=== PATIENT | male | born 1955 | race Caucasian/White ===

== ENCOUNTER → 2019-06-08 | Outpatient (CLI) | payer BC ==
[~2019-06-08] MED LIST: GABAPENTIN100 MG PO; LIPITOR20 MG PO; PROTONIX40 MG PO; REGLAN10 MG PO; VIT D2 PO
--- NOTE | 2019-06-08 19:19 | Diagnostic Imaging Report ---
EXAMINATION: CT of the abdomen and pelvis without contrast. TECHNIQUE: Spiral CT images of the abdomen and pelvis were performed from the lung bases to the lesser trochanters. No intravenous contrast was given per renal stone protocol. Coronal and sagittal reformatted images were obtained. COMPARISON: None. CLINICAL HISTORY:Right lower side pain since last night. History of kidney stones 2 years ago DISCUSSION: ABSENCE OF INTRAVENOUS CONTRAST DECREASES SENSITIVITY FOR DETECTION OF FOCAL LESIONS AND VASCULAR PATHOLOGY. ABDOMEN/PELVIS: LOWER THORAX: Focal pleural thickening in the posterior left lower lobe (series 3, image 39). This are grossly clear. HEPATOBILIARY: Diffuse hepatic steatosis. Normal contour. 1.4 cm fluid density lesion in hepatic segment /V (series 3, image 81) consistent with a simple cyst. No other focal lesions. No intra or extrahepatic biliary ductal dilation. GALLBLADDER: No radio-opaque stones or sludge. No wall thickening. SPLEEN: No splenomegaly. PANCREAS: No focal masses or ductal dilatation. ADRENALS: No adrenal nodules. KIDNEYS/URETERS: Right: 3-4 mm nonobstructing calculus in the right inferior pole (series 3, image 101). 4 mm nonobstructing calculus in the right interpolar region (series 3, image 89). No other renal or ureteral calculi. No hydronephrosis or obstruction. Mostly exophytic 1.5 cm fluid density simple cyst in the right medial interpolar region (series 3, image 95). 0.9 cm mostly exophytic fluid density simple cyst in the anterior interpolar region (series 3, image 98). Mostly exophytic 1.7 cm fluid density simple cyst in the inferior pole (series 3, image 111) 1.0 cm hyperdense lesion lateral interpolar region (series 3, image 91). Multiple other subcentimeter partially exophytic lesions which are too small to characterize. No significant perinephric stranding. Left: 3-4 mm nonobstructing calculus in the superior to mid aspect (series 3, image 80). No other renal or ureteral calculi, hydronephrosis or obstruction. 3.1 cm mostly exophytic fluid density simple cyst lower region (series 3, image 82). 2.0 cm simple cyst superior pole (series 3, image 76) 1.1 cm, mostly exophytic fluid density simple cyst in the superior to mid aspect (series 3, image 78). 1.0 cm mostly exophytic fluid density simple cyst in the lateral interpolar region (series 3, image 89). 2.2 cm mostly exophytic fluid density simple cyst in the mid to inferior aspect (series 3, image 94). 1.9 cm mostly exophytic fluid density simple cyst in the inferior pole (series 3, image 100). Several other subcentimeter partially exophytic lesions which are to small to characterize. No significant perinephric stranding. PELVIC ORGANS/BLADDER: Bladder lumen is filled with soft tissue density, measuring 22 Hounsfield units. Dystrophic calcifications in the prostate. PERITONEUM/RETROPERITONEUM: No free air or fluid. LYMPH NODES: No intra-abdominal,retroperitoneal, pelvic or inguinal lymphadenopathy. VESSELS: Mild atherosclerotic calcification of the abdominal aorta. GI TRACT: No bowel dilation or evidence of obstruction. No pericolonic inflammatory changes. Appendix is unremarkable. Mild diverticulosis of the proximal sigmoid, without diverticulitis. BONES AND SOFT TISSUES: No aggressive lytic lesions. Mild degenerative disc changes in the lower lumbosacral spine. Diastases of the recti muscles at the midline IMPRESSION: 1. Bladder lumen is filled with soft tissue density and may represent a bladder mass. Alternatively, this may reflect highly proteinaceous or partly hemorrhagic fluid. 2. Bilateral nonobstructing calculi, as described. No ureteral calculi, hydronephrosis or obstruction. 3. Multiple bilateral simple renal cysts. A 1.0 cm hyperdense lesion in the lateral interpolar right kidney is indeterminate, however, may represent a hemorrhagic cyst. This may be further assessed with renal ultrasound. 4. Diffuse hepatic steatosis. Signed by: Dr. Quinton Mccord M.D. on 06/08/2019 7:16 PM
== END ==
LOC: CT 17:38
PROVIDERS: ATTEND Family Medicine
DX: N23 Unspecified renal colic (principal)
CPT/HCPCS: 74176

== ENCOUNTER → 2019-12-25 | Outpatient (CLI) | payer BC ==
--- NOTE | 2019-12-25 12:21 | Diagnostic Imaging Report ---
Exam: KUB - 2 views Indication: Renal calculus Comparison: KUB 06/19/2019 Findings: No radiographic apparent renal calculi. Nonobstructive bowel gas pattern. No free air. No acute osseous injury. Phleboliths in the pelvis. Impression: No radiographically apparent renal calculi. Signed by: Anahi Romero MD on 12/25/2019 12:17 PM
== END ==
LOC: RAD 11:42
PROVIDERS: ATTEND Urology
DX: N20.0 Calculus of kidney (principal)
CPT/HCPCS: 74018

== ENCOUNTER 2020-07-11 10:11 | Inpatient (IN) | payer BC ==
[2020-07-07 09:49] LABS: BASOPHILS # (AUTO) 0.1 (0.0-0.1); BASOPHILS % 0.9 % (0.0-1.0); EOSINOPHILS # (AUTO) 0.1 (0.0-0.4); EOSINOPHILS % 0.9 % (0.0-6.0); HEMATOCRIT 43.4 % (38.2-49.6); LYMPHOCYTES # (AUTO) 1.5 (1.0-3.2); LYMPHOCYTES % 14.9 % (18.0-39.1); MEAN CORPUSCULAR HEMOGLOBIN 30.8 pg (28-32); MEAN CORPUSCULAR HGB CONC 32.3 g/dL (31-35); MEAN CORPUSCULAR VOLUME 95.4 fL (81-99); MONOCYTES # (AUTO) 1.1 (0.2-0.8); MONOCYTES % 10.7 % (4.4-11.3); NEUTROPHILS # (AUTO) 7.2 (2.1-6.9); NEUTROPHILS % 71.8 % (38.7-80.0); PLATELET COUNT 248 x10e3/uL (140-360); RED BLOOD COUNT 4.55 x10e6/uL (4.3-5.7); RED CELL DISTRIBUTION WIDTH 12.6 % (11.7-14.4)
[2020-07-07 10:08] LABS: ANION GAP 14.1 mmol/L (8-16); BLOOD UREA NITROGEN 12 mg/dL (7-26); BUN/CREATININE RATIO 11 (6-25); CALCIUM 9.2 mg/dL (8.4-10.2); CARBON DIOXIDE 24 mmol/L (22-29); CHLORIDE 105 mmol/L (98-107); CREATININE, SERUM 1.05 mg/dL (0.72-1.25); EST GLOMERULAR FILTRATION RATE > 60 ML/MIN (60-); GLUCOSE 113 mg/dL (74-118); POTASSIUM 4.1 mmol/L (3.5-5.1); SODIUM 139 mmol/L (136-145)
[~2020-07-11] VITALS: Ht 167.6 cm; Wt 69.4 kg
[~2020-07-11 10:11] MED LIST changes: +ATORVASTATIN CA20 MG PO; +FLOMAX0.4 MG PO; +GLIMEPIRIDE2 MG PO; +LOSARTAN POTAS100 MG PO; +METFORMIN HCL500 MG PO; +PHENAZOPYRIDINE HCL 100 MG TAB PO PRN
[2020-07-11] MEDS ORDERED: CEFAZOLIN SOD 1 GM/NS 50ML 100 ML IV ONE (10:30)
[2020-07-11] MEDS ORDERED: IOPAMIDOL 300MG/ML 50ML INFUS..BTL IV ONE (12:43)
[2020-07-11] MEDS ORDERED: INDIGOTINDISULFONATE SODIUM 8 MG/ML AMP IJ ONE (12:44)
[2020-07-11] MEDS ORDERED: NEOSTIGMINE 1 MG/ML 10ML VIAL ONE (12:54)
[2020-07-11] MEDS ORDERED: DEXAMETHASONE SOD PHOS INJ 4 MG/ML VIAL ONE (12:54)
[2020-07-11] MEDS ORDERED: SEVOFLURANE INHAL SOLN 250 ML PEN BTL ONE (12:54)
[2020-07-11] MEDS ORDERED: ROCURONIUM BROMIDE 10 MG/ML 5ML VIAL IV ONE (12:54)
[2020-07-11] MEDS ORDERED: LIDOCAINE HCL 2% LOCAL INJ 5 ML SDV VIAL INJ ONE (12:54)
[2020-07-11] MEDS ORDERED: PROPOFOL IV EMULSION 10 MG/ML 20 ML VIAL ONE (12:54)
[2020-07-11] MEDS ORDERED: ONDANSETRON HCL INJ 2MG/ML 2ML 2 MG/ML VIAL ONE (12:54)
[2020-07-11] MEDS ORDERED: GLYCOPYRROLATE INJ 0.2 MG/ML VIAL ONE (12:54)
[2020-07-11] MEDS ORDERED: LIDOCAINE HCL 2% JELLY 5 ML TUBE ONE (12:54)
[2020-07-11] MEDS ORDERED: LOSARTAN POTASS25 MG PO (13:03)
[2020-07-11] MEDS ORDERED: GENTAMICIN 80MG/NS 100 ML 200 ML IV ONE (13:12)
[2020-07-11] MEDS ORDERED: DIPHENHYDRAMINE HCL INJ 50 MG/ML VIAL IM PRN (16:00)
[2020-07-11] MEDS ORDERED: ONDANSETRON HCL INJ 2MG/ML 2ML 2 MG/ML VIAL IV PRN (16:00)
[2020-07-11] MEDS ORDERED: NALOXONE HCL INJ 0.4 MG/ML AMP IV PRN (16:00)
[2020-07-11] MEDS ORDERED: MORPHINE SULFATE 1 MG/ML 30ML PCA IV PRN (16:00)
--- OUTSIDE RECORDS SUMMARY | 2020-07-11 16:47 | XMS REPORT | Continuity of Care Document ---
Author Author [facility] Organization [facility] Address [address] [place] [phone] Phone Unavailable Care Team Providers Care Wood Veneer Taper Name Role Phone DELL MONTOYA Attphys Unavailable Eden TOVAR Attphys Unavailable Problems This patient has no known problems. Allergies, Adverse Reactions, Alerts This patient has no known allergies or adverse reactions. Medications This patient has no known medications. Procedures This patient has no known procedures. Results Test Description Test Time Test Comments Results Result Comments Source ABDOMEN-1VIEW ([facility]) 2019-12-25 12:17:00 [place] [address] Patient Name: ELADIA PACHECO MR #: [id number] : 1955 Age/Sex: 64/M Req #: [id number] Adm Physician: Ordered by: DELL MONTOYA MD Report #: [id number] Location: [facility] Room/Bed: Procedure: [id number] DX/ABDOMEN-1VIEW ([facility]) Exam Date: 12/25/19 Exam Time: 1153 REPORT STATUS: Signed Exam: KUB - 2 views Indication: Renal calculus Comparison: KUB 06/19/2019 Findings: No radiographic apparent renal calculi. Nonobstructive bowel gas pattern. No free air. No acute osseous injury. Phleboliths in the pelvis. Impression: No r adiographically apparent renal calculi. Signed by: Fozia Huerta MD on 12/25/2019 12:17 PM Dictated By: FOZIA HUERTA MD 16 Transcribed By: RNEE on 12/25/191216 COPY TO: DELL MONTOYA MD ABDOMEN-1VIEW ([facility]) 2019-06-19 11:50:00 [place] [address] Patient Name: ELADIA PACHECO MR #: [id number] : 1955 Age/Sex: 64/M Req #: [id number] Adm Physician: Ordered by: DELL MONTOYA MD Report #: [id number] Location: [facility] Room/Bed: Procedure: [id number] DX/ABDOMEN-1VIEW ([facility]) Exam Date: 06/19/19 Exam Time: 1050 REPORT STATUS: Signed Exam: KUB - 2 views Indication: Renal calculi Comparison: CT abdomen and pelvis of 06/08/2019 Findings: No radiographically apparent renal calculi. The tiny punctate calculi seen on the CT of 06/08/2019 are beyond the resolution of this radiograph. Nonobstructive bowel gas pattern. No free air. The osseous structures appear unremarkable. Fluid within the pelvis. Impression: No radiographically apparent renal calculus. Signed by: Fozia Huerta MD on 06/19/2019 11:52 AM Dictated By: FOZIA HUERTA MD 1152 Transcribed By: RENE on 06/19/19 115 COPY TO: DELL MONTOYA MD CT ABDOMEN/PELVIS WO 2019-06-08 19:02:00 [facility] [address] [place] [address] Patient Name: ELADIA PACHECO MR #: [id number] : 1955 Age/Sex: 64/M Req #: [id number] Adm Physician: Ordered by: SAM TOVAR MD Report #: [id number] Location: CT Room/Bed: Procedure: [id number] CT/CT ABDOMEN/PELVIS WO Exam Date: 06/08/19 Exam Time: 1800 REPORT STATUS: Signed EXAMINATION: CT of the abdomen and pelvis without contrast. TECHNIQUE: Spiral CT images of the abdomen and pelvis were performed from the lung bases to the lesser trochanters. No intravenous contrast was given per renal stone protocol. Coronal and sagittal reformatted images were obtained. COMPARISON: None. CLINICAL HISTORY:Right lower side pain since last night. History of kidney stones 2 years ago DISCUSSION: ABSENCE OF INTRAVENOUS CONTRAST DECREASES SENSITIVITY FOR DETECTION OF FOCAL LESIONS AND VASCULAR PATHOLOGY. ABDOMEN/PELVIS: LOWER THORAX: Focal pleural thickening in the posterior left lower lobe (series 3, image 39). This are grossly clear. HEPATOBILIARY: Diffuse hepatic steatosis. Normal contour. 1.4 cm fluid density lesion in hepatic segment /V (series 3, image 81) consistent with a simple cyst. No other focal lesions. No intra or extrahepatic biliary ductal dilation. GALLBLADDER: No radio-opaque stones or sludge. No wall thickening. SPLEEN: No splenomegaly. PANCREAS: No focal masses or ductal dilatation. ADRENALS: No adrenal nodules. KIDNEYS/URETERS: Right: 3-4 mm nonobstructing calculus in the right inferior pole (series 3, image 101). 4 mm nonobstructing calculus in the right interpolar region (series 3, image 89). No other renal or ureteral calculi. No hydronephrosis or obstruction. Mostly exophytic 1.5 cm fluid density simple cyst in the right medial interpolar region (series 3, image 95). 0.9 cm mostly exophytic fluid density simple cyst in the anterior interpolar region (series 3, image 98). Mostly exophytic 1.7 cm fluid density simple cyst in the inferior pole (series 3, image 111) 1.0 cm hyperdense lesion lateral interpolar region (series 3, image 91). Multiple other subcentimeter partially exophytic lesions which are too small to characterize. No significant perinephric stranding. Left: 3-4 mm nonobstructing calculus in the superior to mid aspect (series 3, image 80). No other renal or ureteral calculi, hydronephrosis or obstruction. 3.1 cm mostly exophytic fluid density simple cyst lower region (series 3, image 82). 2.0 cm simple cyst superior pole (series 3, image 76) 1.1 cm, mostly exophytic fluid density simple cyst in the superior to mid aspect (series 3, image 78). 1.0 cm mostly exophytic fluid density simple cyst in the lateral interpolar region (series 3, image 89). 2.2 cm mostly exophytic fluid density simple cyst in the mid to inferior aspect (series 3, image 94). 1.9 cm mostly exophytic fluid density simple cyst in the inferior pole (series 3, image 100). Several other subcentimeter partially exophytic lesions which are to small to characterize. No significant perinephric stranding. PELVIC ORGANS/BLADDER: Bladder lumen is filled with soft tissue density, measuring 22 Hounsfield units. Dystrophic calcifications in the prostate. PERITONEUM/RETROPERITONEUM: No free air or fluid. LYMPH NODES: No intra-abdominal,retroperitoneal, pelvic or inguinal lymphadenopathy. VESSELS: Mild atherosclerotic calcification of the abdominal aorta. GI TRACT: No bowel dilation or evidence of obstruction. No pericolonic inflammatory changes. Appendix is unremarkable. Mild diverticulosis of the proximal sigmoid, without diverticulitis. BONES AND SOFT TISSUES: No aggressive lytic lesions. Mild degenerative disc changes in the lower lumbosacral spine. Diastases of the recti muscles at the midline IMPRESSION: 1. Bladder lumen is filled with soft tissue density and may represent a bladder mass. Alternatively, this may reflect highly proteinaceous or partly hemorrhagic fluid. 2. Bilateral nonobstructing calculi, as described. No ureteral calculi, hydronephrosis or obstruction. 3. Multiple bilateral simple renal cysts. A 1.0 cm hyperdense lesion in the lateral interpolar right kidney is indeterminate, however, may represent a hemorrhagic cyst. This may be further assessed with renal ultrasound. 4. Diffuse hepatic steatosis. Signed by: Dr. Theodora Mccord M.D. on 06/08/2019 7:16 PM Dictated By: THEODORA MCCORD MD 15 Transcribed By: RENE on 06/08/191915 COPY TO: SAM TOVAR MD
[2020-07-11] MEDS ORDERED: HYDROMORPHONE 1MG/1ML INJ ONE ×2 (16:56→17:33)
[2020-07-11 16:59] LABS: BASOPHILS # (AUTO) 0.1 (0.0-0.1); BASOPHILS % 0.6 % (0.0-1.0); EOSINOPHILS % 0.2 % (0.0-6.0); HEMATOCRIT 38.5 % (38.2-49.6); HEMOGLOBIN 12.2 g/dL (14.0-18.0); LYMPHOCYTES # (AUTO) 1.6 (1.0-3.2); LYMPHOCYTES % 8.2 % (18.0-39.1); MEAN CORPUSCULAR HEMOGLOBIN 31.2 pg (28-32); MEAN CORPUSCULAR HGB CONC 31.7 g/dL (31-35); MEAN CORPUSCULAR VOLUME 98.5 fL (81-99); MONOCYTES # (AUTO) 0.7 (0.2-0.8); MONOCYTES % 3.4 % (4.4-11.3); NEUTROPHILS # (AUTO) 17.2 (2.1-6.9); NEUTROPHILS % 86.7 % (38.7-80.0); PLATELET COUNT 182 x10e3/uL (140-360); RED BLOOD COUNT 3.91 x10e6/uL (4.3-5.7); RED CELL DISTRIBUTION WIDTH 12.2 % (11.7-14.4)
[2020-07-11] MEDS: DOCUSATE SODIUM 100 MG CAP PO SCH (17:00)
[2020-07-11 17:19] LABS: ANION GAP 13.3 mmol/L (8-16); BLOOD UREA NITROGEN 10 mg/dL (7-26); BUN/CREATININE RATIO 10 (6-25); CALCIUM 8.1 mg/dL (8.4-10.2); CARBON DIOXIDE 22 mmol/L (22-29); CHLORIDE 108 mmol/L (98-107); CREATININE, SERUM 1.05 mg/dL (0.72-1.25); EST GLOMERULAR FILTRATION RATE > 60 ML/MIN (60-); GLUCOSE 153 mg/dL (74-118); POTASSIUM 4.3 mmol/L (3.5-5.1); SODIUM 139 mmol/L (136-145)
--- NOTE | 2020-07-11 18:26 | NUR ---
report received from PACU for pt coming to room 103
--- NOTE | 2020-07-11 18:40 | NUR ---
pt arrived to room 103; transfer of care report given to PM nurse. pt in stable condition; at bedside.
--- NOTE | 2020-07-11 18:58 | NUR ---
WALKING ROUNDS PERFORMED, RECEIVED PT LAYING SEMI FOWLERS IN BED, AAOX1, OBTUNDED, PT WAKES UP TO SHAKING AND WILL GO RIGHT BACK TO SLEEP. 12 RR/MIN NOTED. PT HAS GALLEY HAND PUMP FOR PAIN CONTROL, NO BASAL RATE. NAGY TO BEDSIDE BAG. LEFT PT LAYING SEMI FOWLERS IN BED, BED IN LOW LOCKED POSITION, SIDE RAILS UPX2, CALL LIGHT AND PHONE WITHIN REACH. FAMILY AT BEDSIDE.
[2020-07-11] MEDS ORDERED: MIDAZOLAM HCL 2 MG/2 ML VIAL ONE (19:44)
[2020-07-11] MEDS ORDERED: FENTANYL CITRATE/PF 100MCG/2 ML INJ ONE (19:44)
[2020-07-11 20:00] VITALS: BP 129/67
[2020-07-11] MEDS: SOD CHL 0.45%/POT CHL 20MEQ 1,000 ML IV SCH (20:50)
[2020-07-11 21:48] VITALS: BP 129/67
[2020-07-11 23:23] VITALS: BP 111/75
--- NOTE | 2020-07-12 00:41 | Operative Report ---
DATE OF PROCEDURE: 07/11/2020 SURGEON: Aimee Aldridge MD SERVICE: Urology. PREOPERATIVE DIAGNOSIS: Adenocarcinoma of the prostate, multifocal. POSTOPERATIVE DIAGNOSIS: Adenocarcinoma of the prostate, multifocal. OPERATION PERFORMED: Radical perineal prostatectomy. INVENTORY AUDITOR: Dr. Mauri Aldridge. ANESTHESIA: General. CLINICAL INDICATION: Note, this is a 65-year-old patient, was found to have adenocarcinoma of the prostate. Metastatic workup was negative. PSA was noted above 10. The patient was approved for radical perineal prostatectomy. Potential benefits and complications discussed and explained. He is aware that there is a remote possibility of needing blood and may be some problem with erectile dysfunction as well as urinary incontinence and he accepted. DESCRIPTION OF PROCEDURE AND FINDINGS: After proper level of anesthesia was achieved, the patient was placed in an extended lithotomy position, prepped and draped in a sterile fashion. Incision was made using half pitka's point around the anus inside the ischial tuberosity on each side. The median raphae was dissected and transected. The prostate was then dissected on each side. Separation of the rectum from the posterior aspect of the prostate was done in addition to be careful dissection. The rectal finger was inserted to ensure that there was no injury to the rectum and there was none. Following this, the dissection was carried out to the base of the prostate. Only each side, the seminal vesicles were identified. Following this, the apex was dissected. The urethra was transected at the apex. This was followed by replacing a Lowsley retractor which was inserted earlier was straight a Lowsley retractor. The base of the prostate was then from the bladder neck with the use of a Martins catheter and extended balloon dissection was done circumferentially around the opening. Following this, the area under the base of the prostate was identified. Seminal vesicles on each side and the ejaculatory duct were sent, clips were placed on each of the ejaculatory duct and it was transected. Following this, seminal vesicle specimen was sent separately to pathology. The specimen was removed. Rectal exam verified no injury to the rectum. At this point, anastomosis was began. Both ureteral orifices were identified and methylene blue was given IV and clearly was coming from both sides. The anastomosis was then done using interrupted absorbable sutures. A 2-0 sutures were used. The anastomosis was done over the 20-Tongan Martins catheter. The last 3 stitches were not tied and the Martins catheter was replaced with a 22-Tongan 10 mL Martins catheter, this was properly positioned inside the bladder. The last 3 stitches were tied. The stitch in the middle is like a U shaped stitch. Again, the wound was inspected. No significant bleeding was identified. Aron drain was placed at the side of the incision and the median raphae was approximated with #1 Vicryl. Subcuticular tissue was approximated with 3-0 Vicryl and the skin was approximated with 3-0 interrupted and vertical mattresses. A Aron drain was left in the incision and brought through the left side of the incision and secured with a chromic catgut. Estimated blood loss . The patient tolerated the procedure well, was transferred in satisfactory condition to recovery room. MD MICHELLE Kim/HAL /[id number]
[2020-07-12 03:20] VITALS: BP 105/66
[2020-07-12] MEDS: SOD CHL 0.45%/POT CHL 20MEQ 1,000 ML IV SCH ×3 (04:00→16:00)
[2020-07-12 04:40] LABS: BASOPHILS # (AUTO) 0.1 (0.0-0.1); BASOPHILS % 0.3 % (0.0-1.0); HEMATOCRIT 35.5 % (38.2-49.6); HEMOGLOBIN 11.3 g/dL (14.0-18.0); LYMPHOCYTES # (AUTO) 0.7 (1.0-3.2); LYMPHOCYTES % 3.2 % (18.0-39.1); MEAN CORPUSCULAR HGB CONC 31.8 g/dL (31-35); MEAN CORPUSCULAR VOLUME 97.3 fL (81-99); MONOCYTES # (AUTO) 2.1 (0.2-0.8); MONOCYTES % 9.1 % (4.4-11.3); NEUTROPHILS # (AUTO) 19.7 (2.1-6.9); NEUTROPHILS % 86.7 % (38.7-80.0); PLATELET COUNT 192 x10e3/uL (140-360); RED BLOOD COUNT 3.65 x10e6/uL (4.3-5.7); RED CELL DISTRIBUTION WIDTH 12.2 % (11.7-14.4)
[2020-07-12 05:04] LABS: BLOOD UREA NITROGEN 13 mg/dL (7-26); BUN/CREATININE RATIO 12 (6-25); CALCIUM 7.7 mg/dL (8.4-10.2); CARBON DIOXIDE 24 mmol/L (22-29); CHLORIDE 105 mmol/L (98-107); CREATININE, SERUM 1.05 mg/dL (0.72-1.25); EST GLOMERULAR FILTRATION RATE > 60 ML/MIN (60-); GLUCOSE 152 mg/dL (74-118); SODIUM 135 mmol/L (136-145)
--- NOTE | 2020-07-12 07:05 | NUR ---
BEDSIDE SHIFT REPORT RECEIVED FROM PM NURSE. PT AWAKE, ALERT, ORIENTED X3, NAGY INTACT, BAG BELOW LEVEL OF BLADDER. BED LOCKED AND IN LOWEST POSITION. IV PATENT. NO S/S DISTRESS. PT IN STABLE CONDITION.
[2020-07-12 07:22] VITALS: BP 105/66
[2020-07-12] MEDS: DOCUSATE SODIUM 100 MG CAP PO SCH ×2 (09:00→17:41)
--- NOTE | 2020-07-12 09:07 | NUR ---
at bedside. taught pt and how to change dressing through demonstration. pt and voiced understanding.
[2020-07-12] MEDS: PIPER-TAZ 3.375 GM 50 ML IV SCH ×3 (09:46→22:26)
[2020-07-12] MEDS ORDERED: SODIUM CHLORIDE 0.9% 250ML 250 ML ONE (12:49)
[2020-07-12 13:09] VITALS: BP 125/81
--- NOTE | 2020-07-12 16:15 | NUR ---
pt ambulating in hallway, no s/s distress noted, tolerating well. in stable condition.
[2020-07-12 16:22] VITALS: BP 126/77
--- NOTE | 2020-07-12 18:12 | NUR ---
pt feeling better, tolerated solid food at dinnertime. pt's dressing change per MD's orders; tolerated well.
--- NOTE | 2020-07-12 18:54 | NUR ---
WALKING ROUNDS PERFORMED, RECEIVED PT LAYING SEMI FOWLERS IN BED, AAOX3, RR EVEN AND NON-LABORED, ON ROOM AIR. NAGY TO GRAVITY. PT HAS WEATHERIZATION ADMINISTRATOR PUMP FOR PAIN CONTROL, WEATHERIZATION ADMINISTRATOR BUTTON WITHIN REACH. FAMILY AT BEDSIDE. LEFT PT LAYING SEMI FOWLERS IN BED, BED IN LOW LOCKED POSITION, SIDE RAILS UPX2, CALL LIGHT AND PHONE WITHIN REACH.
[2020-07-12 20:00] VITALS: BP 120/64
--- NOTE | 2020-07-12 20:15 | NUR ---
SPOKE WITH MD TOVAR CONCERNING PT CURRENT POTASSIUM LEVEL AND IVF WITH POTASSIUM. NEW ORDERS RECEIVED.
[2020-07-12] MEDS: SODIUM CHLORIDE 0.45% 1,000 ML IV SCH (20:30)
--- NOTE | 2020-07-12 20:40 | History and Physical ---
HISTORY OF PRESENTING ILLNESS: This is a 65-year-old gentleman who is admitted to the hospital for radical prostatectomy. The patient was found to have prostate cancer. PAST MEDICAL HISTORY: History of hypertension, history of hyperlipidemia, history of diabetes mellitus, and history of benign prostatic hypertrophy. MEDICATIONS: He takes at home include atorvastatin 20 mg, glimepiride 2 mg, losartan 25 mg, metformin 1000 mg twice a day and tamsulosin 0.4 mg. 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 SOCIAL HISTORY: No EtOH. No IV drug abuse. No history of smoking either. REVIEW OF SYSTEMS: Negative for chest pain. No shortness of breath. No nausea, vomiting, or diarrhea. No constipation. No rectal bleeding. No hematochezia. No hematemesis either. PHYSICAL EXAMINATION: VITAL SIGNS: The patient's vital signs on arrival, temperature is 97.6, pulse of 85, respirations of 18, pulse ox 95% on room air. HEENT: Normocephalic, atraumatic. 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 NECK: No JVD. CVS: S1 and S2. Regular rate and rhythm. ABDOMEN: Soft, nontender, nondistended. EXTREMITIES: No clubbing, no cyanosis, no edema. LABORATORY VALUES: Initial white count is 10.05, hemoglobin of 14, hematocrit of 43.4, neutrophil count is 7.25. ASSESSMENT AND PLAN: Mr. Michoacano Copeland with prostate cancer status post radical perineal prostatectomy. The patient is status post surgery. Continue with Zosyn at this time. The patient is on morphine pump. Continue with monitoring his blood pressure. Vitals have been stable so far, no drop seen. We will continue to monitor him. Further recommendation per clinical course and also urological services. We will check his white count tomorrow again and further recommendation per clinical course. MD BENY SalgadoJ/MODL /[id number]
[2020-07-12 21:01] VITALS: BP 120/64
[2020-07-13] VITALS (8 sets, daily range): BP systolic 119–136; BP diastolic 65–83
[2020-07-13] MEDS: PIPER-TAZ 3.375 GM 50 ML IV SCH ×4 (03:34→21:30)
[2020-07-13 05:12] LABS: BASOPHILS # (AUTO) 0.1 (0.0-0.1); BASOPHILS % 0.5 % (0.0-1.0); EOSINOPHILS # (AUTO) 0.1 (0.0-0.4); EOSINOPHILS % 0.5 % (0.0-6.0); HEMATOCRIT 35.1 % (38.2-49.6); HEMOGLOBIN 10.6 g/dL (14.0-18.0); LYMPHOCYTES # (AUTO) 1.3 (1.0-3.2); LYMPHOCYTES % 8.3 % (18.0-39.1); MEAN CORPUSCULAR HGB CONC 30.2 g/dL (31-35); MONOCYTES # (AUTO) 1.9 (0.2-0.8); MONOCYTES % 12.5 % (4.4-11.3); NEUTROPHILS # (AUTO) 11.7 (2.1-6.9); NEUTROPHILS % 77.8 % (38.7-80.0); PLATELET COUNT 61 x10e3/uL (140-360); RED BLOOD COUNT 3.31 x10e6/uL (4.3-5.7); RED CELL DISTRIBUTION WIDTH 12.5 % (11.7-14.4)
[2020-07-13 05:42] LABS: ANION GAP 13.2 mmol/L (8-16); BLOOD UREA NITROGEN 10 mg/dL (7-26); BUN/CREATININE RATIO 10 (6-25); CALCIUM 7.6 mg/dL (8.4-10.2); CARBON DIOXIDE 21 mmol/L (22-29); CHLORIDE 108 mmol/L (98-107); CREATININE, SERUM 0.99 mg/dL (0.72-1.25); EST GLOMERULAR FILTRATION RATE > 60 ML/MIN (60-); GLUCOSE 122 mg/dL (74-118); POTASSIUM 4.2 mmol/L (3.5-5.1); SODIUM 138 mmol/L (136-145)
[2020-07-13] MEDS: SODIUM CHLORIDE 0.45% 1,000 ML IV SCH ×3 (06:00→22:29)
--- NOTE | 2020-07-13 07:00 | NUR ---
Received patient resting in bed. No s/s of distress. Bed low, wheels locked, side rails x2. Call light in reach will continue to monitor patient.
--- NOTE | 2020-07-13 07:22 | Progress Note ---
DATE: SUBJECTIVE: This is a 65-year-old gentleman who came in with history of prostate cancer status post radical prostatectomy. The patient is doing well. Pain is about 5/10. He is on morphine pump. No chest pain. No shortness of breath. Complains that the Martins catheter irritating him. Did walk around yesterday, using the incentive spirometer and has SCDs on. OBJECTIVE: VITAL SIGNS: Currently, temperature is 98.3, pulse of 85, respirations of 20, blood pressure is 128/83. He is saturating 97% on room air. HEENT: Normocephalic, atraumatic. Pupils are reactive to light and accommodation. CVS: S1, S2 normal. Regular rate and rhythm. ABDOMEN: Soft, nontender. Martins catheter to gravity. EXTREMITIES: No clubbing, no cyanosis, no edema. LABORATORY VALUES: White count is down to 15,000 from 22,000, hemoglobin of 10.6 and hematocrit 35.6. Chemistries; sodium 138, BUN of 10, creatinine of 0.9, chloride is 108. Serology: Coronavirus is not detected. ASSESSMENT AND PLAN: 1. Mr. Michoacano Copeland status post radical prostatectomy for prostate cancer. 2. Leukocytosis, better. 3. Hyperkalemia, better. 4. Hypertension. We will hold back on his medications. 5. Hyperlipidemia. We will hold back on his medication. Further recommendation per clinical course. The patient is encouraged to walk and use incentive spirometer. Continue monitoring the patient's labs and vitals. Further recommendation per clinical course. Disposition depending on urological services. MD MAYNOR Salgado/MODL /[id number]
[2020-07-13] MEDS: DOCUSATE SODIUM 100 MG CAP PO SCH ×2 (08:04→16:21)
--- NOTE | 2020-07-13 12:51 | NUR ---
Dr. Aldridge rounding on patient. Dressing changed and instructed on how to change dressing. New order to change SURVIVAL SPECIALIST lockout to 30 minutes. New orders implemented.
[2020-07-13] MEDS ORDERED: MORPHINE SULFATE 1 MG/ML 30ML PCA IV PRN (13:00)
--- NOTE | 2020-07-13 19:07 | NUR ---
RECEIVED BEDSIDE SHIFT REPORT FROM PREVIOUS NURSE. CALL LIGHT WITHIN REACH. PATIENT IN BED. NAGY DRAINING WELL. AT BEDSIDE. PATIENT IN NO PAIN OR DISTRESS.
--- NOTE | 2020-07-13 19:40 | NUR ---
PATIENT REFUSED HAVING HIS BLOOD SUGAR/FINGER STICK TAKEN
[2020-07-14] VITALS: BP 139/84
--- NOTE | 2020-07-14 01:15 | NUR ---
IRRIGATION AND NAGY CARE PERFORMED
[2020-07-14] MEDS: PIPER-TAZ 3.375 GM 50 ML IV SCH (03:37)
[2020-07-14 03:50] VITALS: BP 134/80
[2020-07-14 05:07] LABS: BASOPHILS # (AUTO) 0.1 (0.0-0.1); BASOPHILS % 0.8 % (0.0-1.0); EOSINOPHILS # (AUTO) 0.2 (0.0-0.4); EOSINOPHILS % 1.4 % (0.0-6.0); HEMATOCRIT 30.9 % (38.2-49.6); LYMPHOCYTES # (AUTO) 1.8 (1.0-3.2); LYMPHOCYTES % 15.4 % (18.0-39.1); MEAN CORPUSCULAR HGB CONC 32.4 g/dL (31-35); MEAN CORPUSCULAR VOLUME 95.7 fL (81-99); MONOCYTES # (AUTO) 1.6 (0.2-0.8); MONOCYTES % 13.6 % (4.4-11.3); PLATELET COUNT 201 x10e3/uL (140-360); RED BLOOD COUNT 3.23 x10e6/uL (4.3-5.7); RED CELL DISTRIBUTION WIDTH 12.5 % (11.7-14.4)
[2020-07-14 05:25] LABS: ANION GAP 11.6 mmol/L (8-16); BLOOD UREA NITROGEN 8 mg/dL (7-26); BUN/CREATININE RATIO 9 (6-25); CARBON DIOXIDE 25 mmol/L (22-29); CHLORIDE 108 mmol/L (98-107); CREATININE, SERUM 0.88 mg/dL (0.72-1.25); EST GLOMERULAR FILTRATION RATE > 60 ML/MIN (60-); GLUCOSE 115 mg/dL (74-118); POTASSIUM 3.6 mmol/L (3.5-5.1); SODIUM 141 mmol/L (136-145)
--- NOTE | 2020-07-14 06:32 | NUR ---
DR. MONTOYA CAME TO SEE THE PATIENT. HE TOOK OUT THE PACKING AND SAID TO COVER WITH 4X4 DRESSING, EDUCATE THE PATIENT ON LEG BAG AND DRAINAGE BAG. DR. MONTOYA SAID HE CAN GO HOME AND TO SEE DR. MONTOYA FATHER IN 2 WEEKS.
--- NOTE | 2020-07-14 07:03 | NUR ---
GAVE BEDSIDE SHIFT REPORT TO [facility]. CALL LIGHT WITHIN REACH. PATIENT IN BED. LEG BAG AND DRAINAGE BAG GIVEN TO PATIENT AND PATIENT EDUCATED ON THE BAGS Addendum: 07/14/20 at 0705 by Michaela Valentin RN HOURLY ROUNDING PERFORMED Addendum: 07/14/20 at 0706 by Michaela Valentin RN NAGY DRAINING ORANGE RED URINE
[2020-07-14 08:02] VITALS: BP 145/85
[2020-07-14 08:04] VITALS: BP 145/85
--- NOTE | 2020-07-14 08:12 | Progress Note ---
DATE: SUBJECTIVE: A 65-year-old gentleman status post radical prostatectomy for prostate cancer. The patient is doing well. Had a little bit of complaint with sensation of pain in the urethra. No other complaints. Catheter in place. No chest pain. No shortness of breath. The patient did walk around. OBJECTIVE: VITAL SIGNS: Temperature is 97.6, pulse of 85, respirations of 20, blood pressure is 134/80, pulse oximetry of 99%. HEENT: Normocephalic, atraumatic. Pupils are reactive. CVS: S1 and S2 normal. Regular rate and rhythm. ABDOMEN: Soft, nontender, and nondistended. EXTREMITIES: No clubbing, no cyanosis, no edema. GENITOURINARY: Martins catheter to gravity, bloody urine at this time. LABORATORY VALUES: White count is 11,000, hemoglobin of 10.0, and hematocrit of 30. Chemistry shows sodium 141, potassium 3.6, BUN of 8 and creatinine 0.88, calcium is 8.0. The patient had little bit of thrombocytopenia yesterday, but much better today. ASSESSMENT AND PLAN: [facility] with: 1. Status post prostate resection, radical. 2. Prostate cancer. 3. Hypertension. 4. Hyperlipidemia. 5. Thrombocytopenia, resolved. PLAN: Continue current medications. Still hold off on medications for blood pressure. Further recommendation per clinical course. MD MAYNOR Salgado/MODL /[id number]
[2020-07-14] MEDS ORDERED: TYLENOL # 31 EA PO (08:53)
[2020-07-14] MEDS ORDERED: LEVOFLOXACIN250 MG PO (08:54)
--- NOTE | 2020-07-14 09:35 | NUR ---
Patient discharged home, Alert with no distress , prescription and discharge instruction given also demonstrated how to change Martins leg bag, at bedside re demonstrated it, IV Canula removed tip intact, no ss of infiltration noted. Discontinued NAVAL ARCHITECT SPECIALIST pump as ordered by Dr Lew. Martins's catheter is intact. no distress noted no SOB, patient aware about f/up appointments. Transported via wheelchair to [facility]
== END 2020-07-14 09:35 | disposition home or self-care (01) | DRG 708 ==
LOC: OR 10:11 → PACU V 15:58 → MED/SURG 18:54
PROVIDERS: ADMIT Family Medicine; ATTEND Family Medicine
PROC: 0VT00ZZ Resection of Prostate, Open Approach (ICD-10-PCS; principal; 2020-07-11 13:00)
DX: C61 Malignant neoplasm of prostate (principal); I10 Essential (primary) hypertension; E78.5 Hyperlipidemia, unspecified; E11.9 Type 2 diabetes mellitus without complications; Z79.84 Long term (current) use of oral hypoglycemic drugs; G51.0 Bell's palsy; E66.9 Obesity, unspecified; Z68.24 Body mass index [BMI] 24.0-24.9, adult; E87.5 Hyperkalemia; D69.6 Thrombocytopenia, unspecified; Z20.828 Contact with and (suspected) exposure to other viral communicable diseases
CPT/HCPCS: 36415; 80048; 82948; 83735; 85025; 86850; 86900; 88305; 88309; 88331; 88332; 93005; J0690; J1100; J1170; J1580; J2001; J2250; J2270; J2405; J2543; J2710; J3010; J7050; U0002

== ENCOUNTER → 2020-12-02 | Outpatient (CLI) | payer BC ==
[~2020-12-02] MED LIST changes: +DIATRIZOATE MEGL/DIATRIZOA SOD 30 ML BTL PO ONE; +IOPAMIDOL 370 MG/ML 200 ML INFUS..BTL INJ ONE; +LEVOFLOXACIN250 MG PO; +LOSARTAN POTASS25 MG PO; -PHENAZOPYRIDINE HCL 100 MG TAB PO PRN; +SODIUM CHLORIDE 0.9% 50ML 50 ML ONE; +TYLENOL # 31 EA PO
[2020-12-02 15:19] LABS: BLOOD UREA NITROGEN 13 mg/dL (7-26); BUN/CREATININE RATIO 13 (6-25); CREATININE, SERUM 1.04 mg/dL (0.72-1.25); EST GLOMERULAR FILTRATION RATE > 60 ML/MIN (60-)
== END ==
LOC: CT 14:40
PROVIDERS: ATTEND Internal Medicine Gastroenterology
DX: R10.32 Left lower quadrant pain (principal); K21.9 Gastro-esophageal reflux disease without esophagitis; K59.1 Functional diarrhea
CPT/HCPCS: 36415; 74177; 82565; 84520; Q9967

== ENCOUNTER → 2020-12-30 | Day surgery (SDC) | payer BC ==
[~2020-12-30] MED LIST changes: +AMLODIPINE BESYL5 MG PO; -DIATRIZOATE MEGL/DIATRIZOA SOD 30 ML BTL PO ONE; +DICYCLOMINE HCL20 MG PO; +FENTANYL CITRATE/PF 100MCG/2 ML INJ ONE; +HYOSCYAMINE SULFATE 0.5 MG/ML INJ ONE; -IOPAMIDOL 370 MG/ML 200 ML INFUS..BTL INJ ONE; +MIDAZOLAM HCL 2 MG/2 ML VIAL ONE; +NEURONTIN100 MG PO; +PROPOFOL IV EMULSION 10 MG/ML 20 ML VIAL ONE; -SODIUM CHLORIDE 0.9% 50ML 50 ML ONE; +VITAMIN D250 MCG PO
[2020-12-30 14:35] VITALS: BP 147/91
[2020-12-30 14:42] LABS: WBC,FECAL (FECAL LACTOFERRIN) NEGATIVE (NEGATIVE)
[2020-12-31 14:08] LABS: C DIFFICILE TOXIN A&B AMP PROB **POSITIVE** (NEGATIVE)
== END | disposition home or self-care (01) ==
LOC: OR 09:04
PROVIDERS: ATTEND Internal Medicine Gastroenterology
DX: Z09 Encounter for follow-up examination after completed treatment for conditions other than malignant neoplasm (principal); D12.2 Benign neoplasm of ascending colon; D12.3 Benign neoplasm of transverse colon; K52.9 Noninfective gastroenteritis and colitis, unspecified; K57.30 Diverticulosis of large intestine without perforation or abscess without bleeding; K64.8 Other hemorrhoids; I10 Essential (primary) hypertension; E78.00 Pure hypercholesterolemia, unspecified; G51.0 Bell's palsy; E11.9 Type 2 diabetes mellitus without complications; Z01.810 Encounter for preprocedural cardiovascular examination; Z01.812 Encounter for preprocedural laboratory examination; Z20.822 Contact with and (suspected) exposure to COVID-19; Z79.84 Long term (current) use of oral hypoglycemic drugs; Z85.46 Personal history of malignant neoplasm of prostate; Z87.442 Personal history of urinary calculi; Z68.34 Body mass index [BMI] 34.0-34.9, adult; Z90.79 Acquired absence of other genital organ(s)
CPT/HCPCS: 36415; 45380; 45385; 82948; 83630; 83993; 87045; 87177; 87328; 87493; 93005; J1980; J2250; J2704; J3010; U0002; 45378

== ENCOUNTER 2020-12-31 21:51 | Observation (INO) | payer BC ==
[~2020-12-31] VITALS: Ht 167.6 cm; Wt 69.4 kg
[~2020-12-31 21:51] MED LIST changes: -DICYCLOMINE HCL20 MG PO; -FENTANYL CITRATE/PF 100MCG/2 ML INJ ONE; -HYOSCYAMINE SULFATE 0.5 MG/ML INJ ONE; -MIDAZOLAM HCL 2 MG/2 ML VIAL ONE; -PROPOFOL IV EMULSION 10 MG/ML 20 ML VIAL ONE
[2020-12-31] MEDS ORDERED: MORPHINE SULFATE INJ 2 MG/ML SYR IV STA (22:01)
[2020-12-31] MEDS ORDERED: ONDANSETRON HCL INJ 2MG/ML 2ML 2 MG/ML VIAL IV STA (22:01)
[2020-12-31 22:07] LABS: BASOPHILS # (AUTO) 0.1 (0.0-0.1); BASOPHILS % 0.7 % (0.0-1.0); EOSINOPHILS # (AUTO) 0.1 (0.0-0.4); EOSINOPHILS % 0.7 % (0.0-6.0); HEMATOCRIT 43.9 % (38.2-49.6); HEMOGLOBIN 14.6 g/dL (14.0-18.0); LYMPHOCYTES # (AUTO) 2.1 (1.0-3.2); LYMPHOCYTES % 12.6 % (18.0-39.1); MEAN CORPUSCULAR HEMOGLOBIN 31.5 pg (28-32); MEAN CORPUSCULAR HGB CONC 33.3 g/dL (31-35); MEAN CORPUSCULAR VOLUME 94.8 fL (81-99); MONOCYTES # (AUTO) 1.9 (0.2-0.8); MONOCYTES % 11.3 % (4.4-11.3); NEUTROPHILS # (AUTO) 12.3 (2.1-6.9); NEUTROPHILS % 74.1 % (38.7-80.0); PLATELET COUNT 258 x10e3/uL (140-360); RED BLOOD COUNT 4.63 x10e6/uL (4.3-5.7); RED CELL DISTRIBUTION WIDTH 13.2 % (11.7-14.4)
[2020-12-31 22:25] LABS: ALBUMIN/GLOBULIN RATIO 1.1 (0.8-2.0); ANION GAP 18.4 mmol/L (8-16); CREATININE, SERUM 1.24 mg/dL (0.72-1.25); POTASSIUM 3.4 mmol/L (3.5-5.1)
[2020-12-31 22:31] LABS: CREATINE KINASE MB 1.3 ng/mL (0-5.0)
[2021-01-01] MEDS ORDERED: MORPHINE SULFATE INJ 2 MG/ML SYR IV PRN
[2021-01-01] MEDS ORDERED: SODIUM CHLORIDE FLUSH 10 ML SYR INJ PRN
[2021-01-01] MEDS ORDERED: DEXTROSE 50% SYRINGE 50 ML IV PRN
[2021-01-01 01:35] VITALS: BP 125/83
[2021-01-01 01:40] VITALS: BP 125/83
[2021-01-01] MEDS ORDERED: ONDANSETRON HCL INJ 2MG/ML 2ML 2 MG/ML VIAL IV PRN (02:00)
[2021-01-01] MEDS ORDERED: DICYCLOMINE HCL20 MG PO (02:23)
[2021-01-01 04:00] VITALS: BP 102/57
[2021-01-01] MEDS: INSULIN REGULAR, HUMAN 100 UNIT/1 ML 3ML VIAL SQ SCH ×3 (07:30→16:30)
[2021-01-01 08:08] VITALS: BP 120/76
[2021-01-01 08:08] LABS: CREATINE KINASE MB 1.1 ng/mL (0-5.0)
[2021-01-01 08:23] LABS: CHOL/HDL RATIO 2.9 (3.9-4.7)
[2021-01-01] MEDS ORDERED: GABAPENTIN 100 MG CAP PO SCH (09:00)
[2021-01-01] MEDS ORDERED: AMLODIPINE BESYLATE 5 MG TAB PO SCH (09:00)
[2021-01-01] MEDS ORDERED: ASPIRIN 81 MG ENTERIC COATED PO SCH (09:00)
[2021-01-01] MEDS: PANTOPRAZOLE 40 MG 10ML VIAL IV SCH ×2 (09:34→16:45)
[2021-01-01] MEDS: DICYCLOMINE HCL 20 MG TAB PO SCH ×2 (09:34→15:20)
[2021-01-01] MEDS: LOSARTAN POTASSIUM 25 MG TAB PO SCH ×2 (09:34→16:45)
[2021-01-01 16:22] LABS: BASOPHILS # (AUTO) 0.1 (0.0-0.1); BASOPHILS % 0.6 % (0.0-1.0); EOSINOPHILS # (AUTO) 0.4 (0.0-0.4); EOSINOPHILS % 3.6 % (0.0-6.0); HEMOGLOBIN 12.6 g/dL (14.0-18.0); LYMPHOCYTES # (AUTO) 2.2 (1.0-3.2); LYMPHOCYTES % 18.8 % (18.0-39.1); MEAN CORPUSCULAR HEMOGLOBIN 30.7 pg (28-32); MEAN CORPUSCULAR HGB CONC 32.3 g/dL (31-35); MEAN CORPUSCULAR VOLUME 95.1 fL (81-99); MONOCYTES # (AUTO) 1.6 (0.2-0.8); MONOCYTES % 13.6 % (4.4-11.3); NEUTROPHILS # (AUTO) 7.3 (2.1-6.9); PLATELET COUNT 225 x10e3/uL (140-360); RED CELL DISTRIBUTION WIDTH 13.2 % (11.7-14.4)
[2021-01-01 16:46] LABS: ANION GAP 15.7 mmol/L (8-16); BLOOD UREA NITROGEN 14 mg/dL (7-26); BUN/CREATININE RATIO 13 (6-25); CALCIUM 8.3 mg/dL (8.4-10.2); CARBON DIOXIDE 25 mmol/L (22-29); CHLORIDE 105 mmol/L (98-107); CREATININE, SERUM 1.12 mg/dL (0.72-1.25); EST GLOMERULAR FILTRATION RATE > 60 ML/MIN (60-); GLUCOSE 109 mg/dL (74-118); POTASSIUM 3.7 mmol/L (3.5-5.1); SODIUM 142 mmol/L (136-145)
[2021-01-01 16:49] VITALS: BP 132/68
[2021-01-01 16:54] LABS: CREATINE KINASE MB 0.9 ng/mL (0-5.0)
[2021-01-01] MEDS ORDERED: ATORVASTATIN 20 MG TAB PO SCH (21:00)
== END 2021-01-01 18:07 | disposition home or self-care (01) ==
LOC: ER 21:59 → ERHOLD 23:49 → MED/SURG2 01-01 01:21
PROVIDERS: ADMIT Family Medicine; ATTEND Family Medicine
DX: R07.9 Chest pain, unspecified (principal); K29.70 Gastritis, unspecified, without bleeding; I10 Essential (primary) hypertension; E78.5 Hyperlipidemia, unspecified; E11.9 Type 2 diabetes mellitus without complications; Z85.46 Personal history of malignant neoplasm of prostate; N18.9 Chronic kidney disease, unspecified; Z20.822 Contact with and (suspected) exposure to COVID-19
CPT/HCPCS: 36415 ×2; 74022; 80048; 80053; 80061; 82550 ×2; 82553 ×2; 82948; 84484 ×2; 85025 ×2; 93005; 93306; 99284; C9113; G0378 ×2; J2405; U0002

== ENCOUNTER → 2023-06-07 | Day surgery (SDC) | payer BC ==
[2023-06-05 08:39] LABS: BASOPHILS # (AUTO) 0.1 (0.0-0.1); EOSINOPHILS # (AUTO) 0.2 (0.0-0.4); EOSINOPHILS % 2.9 % (0.0-6.0); HEMATOCRIT 39.4 % (38.2-49.6); HEMOGLOBIN 13.8 g/dL (14.0-18.0); LYMPHOCYTES # (AUTO) 1.1 (1.0-3.2); LYMPHOCYTES % 15.2 % (18.0-39.1); MEAN CORPUSCULAR HEMOGLOBIN 31.9 pg (28-32); MEAN CORPUSCULAR VOLUME 91.2 fL (81-99); MONOCYTES % 13.7 % (4.4-11.3); NEUTROPHILS # (AUTO) 4.6 (2.1-6.9); NEUTROPHILS % 66.6 % (38.7-80.0); PLATELET COUNT 263 x10e3/uL (140-360); RED BLOOD COUNT 4.32 x10e6/uL (4.3-5.7); RED CELL DISTRIBUTION WIDTH 13.3 % (11.7-14.4); WHITE BLOOD COUNT 6.92 x10e3/uL (4.8-10.8)
[~2023-06-07] MED LIST changes: +CELEBREX200 MG PO; +DICYCLOMINE HCL20 MG PO; +HYOSCYAMINE SULFATE 0.5 MG/ML INJ ONE; +LACTATED RINGER'S 1,000 ML ONE; +PIOGLITAZONE HC45 MG PO; +PROPOFOL IV EMULSION 100 ML IV ONE
[2023-06-07 11:30] VITALS: BP 149/89; PULSE 83; RESP 18; TEMP 97.2; O2SAT 97
[2023-06-11 09:14] LABS: ENDOMYSIAL ANTIBODIES, IGA Negative (Negative)
== END | disposition home or self-care (01) ==
LOC: OR 08:49
PROVIDERS: ATTEND Internal Medicine Gastroenterology
DX: K52.9 Noninfective gastroenteritis and colitis, unspecified (principal); Z86.010 Personal history of colon polyps; K31.7 Polyp of stomach and duodenum; K29.70 Gastritis, unspecified, without bleeding; K21.00 Gastro-esophageal reflux disease with esophagitis, without bleeding; K57.30 Diverticulosis of large intestine without perforation or abscess without bleeding; K62.89 Other specified diseases of anus and rectum; K64.8 Other hemorrhoids; I10 Essential (primary) hypertension; E78.5 Hyperlipidemia, unspecified; E11.9 Type 2 diabetes mellitus without complications; R05.9 Cough, unspecified; Z01.810 Encounter for preprocedural cardiovascular examination; Z01.812 Encounter for preprocedural laboratory examination; Z79.84 Long term (current) use of oral hypoglycemic drugs; Z79.899 Other long term (current) drug therapy; Z68.36 Body mass index [BMI] 36.0-36.9, adult; Z85.46 Personal history of malignant neoplasm of prostate
CPT/HCPCS: 36415; 43239; 45380; 82784; 83516; 83630; 83993; 85025; 86140; 86256; 87045; 87177; 87324; 87328; 87449; 93005; C9113; J1980; J2704; J7121; 45378

== ENCOUNTER → 2024-03-20 | Outpatient (REF) | payer MEDICARE ==
[~2024-03-20] MED LIST changes: -HYOSCYAMINE SULFATE 0.5 MG/ML INJ ONE; -LACTATED RINGER'S 1,000 ML ONE; -PROPOFOL IV EMULSION 100 ML IV ONE
== END ==
LOC: RAD 09:51
PROVIDERS: ATTEND Urology
DX: N20.0 Calculus of kidney (principal); R31.21 Asymptomatic microscopic hematuria; Z87.442 Personal history of urinary calculi
CPT/HCPCS: 74018

== ENCOUNTER 2024-11-10 01:04 | Emergency (ER) | payer MEDICARE ==
[~2024-11-10] VITALS: Ht 167.6 cm; Wt 90.7 kg
[~2024-11-10 01:04] MED LIST changes: +AZITHROMYCIN250 MG PO; +LOMOTIL TABLET1 EACH PO; +ONDANSETRON ODT4 MG PO; +PREDNISONE20 MG PO; +VENTOLIN HFA18 GM INH
[2024-11-10 01:10] VITALS: PULSE 88; RESP 20; TEMP 99.1
[2024-11-10] MEDS ORDERED: SODIUM CHLORIDE FLUSH 10 ML SYR IV PRN (01:30)
[2024-11-10] MEDS: SODIUM CHLORIDE 0.9% 1000ML 1,000 ML IV ONE (01:43)
[2024-11-10] MEDS: ONDANSETRON HCL INJ 2MG/ML 2ML 2 MG/ML VIAL IV STA (01:43)
[2024-11-10 01:47] LABS: BASOPHILS % 0.4 % (0.0-1.0); EOSINOPHILS % 0.1 % (0.0-6.0); HEMATOCRIT 36.9 % (38.2-49.6); HEMOGLOBIN 12.7 g/dL (14.0-18.0); LYMPHOCYTES # (AUTO) 0.4 (1.0-3.2); LYMPHOCYTES % 5.9 % (18.0-39.1); MEAN CORPUSCULAR HEMOGLOBIN 31.3 pg (28-32); MEAN CORPUSCULAR HGB CONC 34.4 g/dL (31-35); MEAN CORPUSCULAR VOLUME 90.9 fL (81-99); MONOCYTES # (AUTO) 1.5 (0.2-0.8); NEUTROPHILS # (AUTO) 4.8 (2.1-6.9); NEUTROPHILS % 71.2 % (38.7-80.0); PLATELET COUNT 183 x10e3/uL (140-360); RED BLOOD COUNT 4.06 x10e6/uL (4.3-5.7); RED CELL DISTRIBUTION WIDTH 13.2 % (11.7-14.4); WHITE BLOOD COUNT 6.73 x10e3/uL (4.8-10.8)
[2024-11-10 02:04] LABS: INFLUENZA A AG POSITIVE (NEGATIVE)
[2024-11-10 02:05] LABS: CORONAVIRUS COVID-19 AG NEGATIVE (NEGATIVE); INFLUENZA B AG NEGATIVE (NEGATIVE)
[2024-11-10 02:09] LABS: BILIRUBIN,URINE NEGATIVE (NEGATIVE); CLARITY,URINE SL CLOUDY (CLEAR); COLOR,URINE YELLOW (YELLOW); GLUCOSE, URINE NEGATIVE (NEGATIVE); KETONES,URINE 1+ (NEGATIVE); LEUKOCYTE ESTERASE ,URINE NEGATIVE (NEGATIVE); NITRITE,URINE NEGATIVE (NEGATIVE); PH,URINE 5.5 (5 - 7); PROTEIN,URINE DIPSTICK 2+ (NEGATIVE); URINE UROBILINOGEN 0.2 mg/dL (0.2 - 1)
[2024-11-10 02:15] LABS: BACTERIA,URINE MODERATE /HPF; EPITHELIAL CELLS,URINE FEW /LPF; MUCUS,URINE MANY
[2024-11-10 02:16] LABS: CALCIUM OXALATE CRYSTALS,UR FEW (FEW)
[2024-11-10 02:21] LABS: ALBUMIN 3.5 g/dL (3.5-5.0); ALBUMIN/GLOBULIN RATIO 1.2 (0.8-2.0); ANION GAP 16.7 mmol/L (8-16); BILIRUBIN,TOTAL 0.6 mg/dL (0.2-1.2); CALCIUM 8.7 mg/dL (8.4-10.2); CREATININE, SERUM 1.4 mg/dL (0.72-1.25); TOTAL PROTEIN 6.5 g/dL (6.5-8.1)
[2024-11-10 02:22] LABS: POTASSIUM 2.7 mmol/L (3.5-5.1)
[2024-11-10] MEDS ORDERED: IOPAMIDOL 370 MG/ML 100 ML INFUS..BTL INJ ONE (02:22)
[2024-11-10] MEDS: POTASSIUM CHLORIDE 20 MEQ TAB CR PO STA (02:53)
[2024-11-10] MEDS: KCL 20 MEQ PACKET/ ORAL SOLN PO STA (02:53)
[2024-11-10 03:18] LABS: TROPONIN I 0.007 ng/mL (0-0.300)
[2024-11-10] MEDS ORDERED: TAMIFLU75 MG PO (03:39)
[2024-11-10 03:52] VITALS: BP 142/86; O2SAT 98
== END 2024-11-10 03:53 | disposition home or self-care (01) ==
LOC: ER 01:10
DX: R05.9 Cough, unspecified (principal); J10.1 Influenza due to other identified influenza virus with other respiratory manifestations; E87.6 Hypokalemia; I12.9 Hypertensive chronic kidney disease with stage 1 through stage 4 chronic kidney disease, or unspecified chronic kidney disease; E11.22 Type 2 diabetes mellitus with diabetic chronic kidney disease; E11.65 Type 2 diabetes mellitus with hyperglycemia; N18.9 Chronic kidney disease, unspecified; E78.5 Hyperlipidemia, unspecified; Z11.52 Encounter for screening for COVID-19; R94.31 Abnormal electrocardiogram [ECG] [EKG]; Z85.46 Personal history of malignant neoplasm of prostate
CPT/HCPCS: 36415; 71045; 74177; 80053; 81001; 83690; 83880; 84484; 85025; 87428; 93005; 94760; 99284; J2405; J7030; Q9967

== ENCOUNTER → 2025-03-29 | Outpatient (REF) | payer MEDICARE ==
[~2025-03-29] MED LIST changes: +TAMIFLU75 MG PO
== END ==
LOC: DX 08:18
PROVIDERS: ATTEND Internal Medicine Gastroenterology
DX: E11.9 Type 2 diabetes mellitus without complications (principal); K57.30 Diverticulosis of large intestine without perforation or abscess without bleeding; K44.9 Diaphragmatic hernia without obstruction or gangrene; K22.70 Barrett's esophagus without dysplasia; K58.0 Irritable bowel syndrome with diarrhea; I10 Essential (primary) hypertension; Z71.3 Dietary counseling and surveillance; Z68.31 Body mass index [BMI] 31.0-31.9, adult; Z78.9 Other specified health status; Z86.0101 Personal history of adenomatous and serrated colon polyps
CPT/HCPCS: 74250